=== PATIENT | male | born 1945 | race Caucasian/White ===

== ENCOUNTER → 2016-09-11 | Outpatient (CLI) | payer OTHER | END | disposition home or self-care (01) | LOC: PCVCIMAG 07:39 | PROVIDERS: ATTEND Internal Medicine Cardiovascular Disease | DX: I34.0 Nonrheumatic mitral (valve) insufficiency (principal); E78.00 Pure hypercholesterolemia, unspecified; I10 Essential (primary) hypertension; I48.91 Unspecified atrial fibrillation | CPT/HCPCS: 80061; 93005; 93306 ==

== ENCOUNTER → 2017-03-19 | Outpatient (CLI) | payer OTHER ==
--- NOTE | 2017-03-19 13:03 | PCVCIMAG ---
APPROVED REPORT Study performed: 03/19/2017 08:04:43 EXAM: Comprehensive 2D, Doppler, and color-flow Echocardiogram Patient Location: Echo lab Room #: 2Status: routine BSA: 2.44 HR: 90 bpmBP: 124/82 mmHg Rhythm: NSR Other Information Study Quality: Adequate Risk Factors: Cardiac Risk Factors: HTN Indications Atrial Fibrillation Dyspnea Hypertension/HDD 2D Dimensions LVEF(%): 42.33 (>50%) IVSd: 7.67 (7-11mm)LVOT Diam: 28.21 (18-24mm) LVDd: 53.64 mm PWd: 10.02 (7-11mm)Ascending Ao: 41.82 (22-36mm) LVDs: 42.37 (25-40mm) Left Atrium: 42.56 (27-40mm) Aortic Root: 35.53 mm LV Single Plane 4CH: 44.26 % LV Single Plane 2CH: 42.87 %Cueva's LVEF: 43.56 % Biplane EF: 45.0 % Volumes Left Atrial Volume (Systole) Single Plane 4CH: 149.39 mLSingle Plane 2CH: 185.51 mL Biplane LA Volume: 175.00 mLLA ESV Index: 71.00 mL/m2 Aortic Valve AoV Peak Andi.: 1.22 m/s AO Peak Gr.: 5.99 mmHgLVOT Max P.14 mmHg LVOT Max V: 0.73 m/s ALEX Vmax: 3.73 cm2 Mitral Valve MV E Max Andi.: 0.71 m/s MV PHT: 51.69 ms MVA (PHT): 4.26 cm2 TDI E/Lateral E': 6.45E/Medial E': 7.10 Medial E' Andi.: 0.10 m/s Lateral E' Andi.: 0.11 m/s Pulmonary Valve PV Peak Andi.: 11.00 m/sPV Peak Gr.: 2.19 mmHg Tricuspid Valve TR Peak Andi.: 2.29 m/s TR Peak Gr.: 21.04 mmHg TV Vmax: 0.74 m/sPA Pressure: 28.00 mmHg Left Ventricle The left ventricle is normal size. Global mild hypokinesis is seen. There is normal left ventricular wall thickness. Left ventricular systolic function is mildly decreased. LVEF is 45%. This study is not technically sufficient to allow evaluation of the LV diastolic function due to atrial fibrillation. Right Ventricle The right ventricle is normal size. The right ventricular systolic function is normal. Atria Left atrium is severely dilated. Right atrium is severely dilated. Aortic Valve The aortic valve is normal in structure. No aortic regurgitation is present. There is no aortic valvular stenosis. Mitral Valve The mitral valve is normal in structure. Mitral regurgitation jet is eccentrically directed. Mild mitral regurgitation. No evidence of mitral valve stenosis. Tricuspid Valve The tricuspid valve is normal in structure. Mild tricuspid regurgitation with a PA pressure of 28mmHg. No apparent pulmonary hypertension. Pulmonic Valve The pulmonary valve is normal in structure. Mild to moderate pulmonic regurgitation. Great Vessels The aortic root is normal in size. The ascending aorta isdilated at 4.2cm IVC is normal in size and collapses with >50% inspiration Pericardium There is no pericardial effusion. There is no pleural effusion. <Conclusion> The left ventricle is normal size. Left ventricular systolic function is mildly decreased. LVEF is 45%. This study is not technically sufficient to allow evaluation of the LV diastolic function due to atrial fibrillation. The right ventricular systolic function is normal. Left atrium is severely dilated. Right atrium is severely dilated. The aortic valve is normal in structure. Mild tricuspid regurgitation with a PA pressure of 28mmHg. No apparent pulmonary hypertension. Mild to moderate pulmonic regurgitation. There is no pericardial effusion.
== END | disposition home or self-care (01) ==
LOC: PCVCIMAG 07:50
PROVIDERS: ATTEND Internal Medicine Cardiovascular Disease
DX: I08.8 Other rheumatic multiple valve diseases (principal); I48.91 Unspecified atrial fibrillation; I42.9 Cardiomyopathy, unspecified; R06.00 Dyspnea, unspecified; I10 Essential (primary) hypertension; I77.810 Thoracic aortic ectasia; Z87.891 Personal history of nicotine dependence; Z79.899 Other long term (current) drug therapy
CPT/HCPCS: 80061; 93005; 93306

== ENCOUNTER → 2017-09-29 | Outpatient (CLI) | payer OTHER ==
[~2017-09-29] MED LIST: REGADENOSON 0.4 MG/5 ML DISP.SYRIN. IV
== END | disposition home or self-care (01) ==
LOC: PCVCIMAG 11:04
DX: I08.1 Rheumatic disorders of both mitral and tricuspid valves (principal); I48.91 Unspecified atrial fibrillation; R06.00 Dyspnea, unspecified; R53.83 Other fatigue; I10 Essential (primary) hypertension; E78.5 Hyperlipidemia, unspecified; Z87.891 Personal history of nicotine dependence
CPT/HCPCS: 78452; 93017; 93306; A9500; J2785

== ENCOUNTER → 2018-03-19 | Outpatient (CLI) | payer OTHER | END | disposition home or self-care (01) | LOC: PCVCCLINIC 14:43 | PROVIDERS: ATTEND Internal Medicine Cardiovascular Disease | DX: I48.2 Chronic atrial fibrillation (principal); E78.00 Pure hypercholesterolemia, unspecified; I10 Essential (primary) hypertension; G47.33 Obstructive sleep apnea (adult) (pediatric); E78.5 Hyperlipidemia, unspecified; I48.0 Paroxysmal atrial fibrillation; Z86.73 Personal history of transient ischemic attack (TIA), and cerebral infarction without residual deficits; Z87.891 Personal history of nicotine dependence | CPT/HCPCS: 36415; 80061; 93005; G0463 ==

== ENCOUNTER → 2018-10-08 | Outpatient (CLI) | payer OTHER | END | disposition home or self-care (01) | LOC: PCVCCLINIC 12:00 | PROVIDERS: ATTEND Internal Medicine Cardiovascular Disease | DX: I48.2 Chronic atrial fibrillation (principal); I10 Essential (primary) hypertension; E78.00 Pure hypercholesterolemia, unspecified; E78.5 Hyperlipidemia, unspecified | CPT/HCPCS: 36415; 80061; 93005; G0463 ==